=== PATIENT | female | born 1985 | race African-American/Black ===

== ENCOUNTER 2016-09-04 16:24 | Emergency (ER) | payer BC ==
[~2016-09-04] VITALS: Ht 165.1 cm; Wt 77.1 kg
[2016-09-04] MEDS ORDERED: MORPHINE SULFATE INJ 4 MG/ML DISP.SYRIN ONE (16:29)
[2016-09-04] MEDS ORDERED: KETOROLAC TROMETHAMINE 15 MG/ML VIAL ONE (16:29)
[2016-09-04] MEDS ORDERED: SILVER SULFADIAZINE CREAM 25 GM TUBE ONE (16:29)
[2016-09-04] MEDS ORDERED: ONDANSETRON HCL/PF 4 MG/2 ML VIAL ONE (16:29)
[2016-09-04] MEDS ORDERED: ONDANSETRON HCL/PF 4 MG/2 ML VIAL IV ONE (16:30)
[2016-09-04] MEDS ORDERED: KETOROLAC TROMETHAMINE INJ 30 MG/ML VIAL IV ONE (16:30)
[2016-09-04] MEDS ORDERED: SILVER SULFADIAZINE CREAM 25 GM TUBE TP ONE (16:30)
[2016-09-04] MEDS ORDERED: MORPHINE SULFATE INJ 2 MG/ML DISP.SYRIN IV ONE (16:30)
--- NOTE | 2016-09-04 16:30 | NUR ---
PT CAME IN FOR LARM BURN S/P COOKING AND ACCIDENTALLY SPILLING SOUP. COMPLAINS OF SEVERE PAIN ON AFFECTED AREA. MD AT BS FOR EVAL. IV ACCESS DOCUMENT IMAGE TECHNICIAN. SAFETY AND COMFORT MEASURES PROVIDED. WILL MONITOR.
--- NOTE | 2016-09-04 16:48 | NUR ---
PT MEDICATED ORDERED.
--- NOTE | 2016-09-04 17:10 | NUR ---
SHAHIDA MOREIRA AT FOR WOUND CARE.
--- NOTE | 2016-09-04 17:53 | NUR ---
IV removed. Catheter intact and site benign. Pressure and 4x4 applied to site. No bleeding noted.Patient discharged to home in stable condition. Written and verbal after care instructions given. Patient verbalizes understanding of instruction.
[2016-09-04 17:57] VITALS: BP 118/72
== END 2016-09-04 17:58 | disposition home or self-care (01) ==
LOC: ER 16:25
DX: T23.202A Burn of second degree of left hand, unspecified site, initial encounter (principal); R06.4 Hyperventilation; X10.0XXA Contact with hot drinks, initial encounter; Y93.G3 Activity, cooking and baking; Y92.89 Other specified places as the place of occurrence of the external cause; Y99.8 Other external cause status
CPT/HCPCS: 16020; 96374; 96375; 99284; A4217 ×2; A4606; J1885; J2270; J2405; Z7610